=== PATIENT | male | born 2000 | race African-American/Black ===

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

== ENCOUNTER 2022-08-22 22:48 | Emergency (ER) | payer OTHER, SELFPAY | END 2022-08-23 01:25 | disposition home or self-care (01) | LOC: ERS 22:48 | DX: J03.90 Acute tonsillitis, unspecified (principal); F17.290 Nicotine dependence, other tobacco product, uncomplicated | CPT/HCPCS: 87081; 87430; 99283 ==